=== PATIENT | female | born 1950 | race Caucasian/White ===

== ENCOUNTER → 2024-03-21 | Day surgery (SDC) | payer MEDICARE ==
[2024-03-16 09:40] LABS: BASOPHILS % 0.4 % (0.0-1.0); EOSINOPHILS # (AUTO) 0.1 (0.0-0.4); EOSINOPHILS % 1.2 % (0.0-6.0); HEMATOCRIT 42.7 % (34.2-44.1); HEMOGLOBIN 14.5 g/dL (12.0-16.0); LYMPHOCYTES # (AUTO) 3.5 (1.0-3.2); MEAN CORPUSCULAR VOLUME 97.3 fL (81-99); MONOCYTES # (AUTO) 0.8 (0.2-0.8); MONOCYTES % 7.9 % (4.4-11.3); NEUTROPHILS # (AUTO) 5.3 (2.1-6.9); NEUTROPHILS % 54.2 % (38.7-80.0); PLATELET COUNT 216 x10e3/uL (140-360); RED BLOOD COUNT 4.39 x10e6/uL (3.6-5.1); RED CELL DISTRIBUTION WIDTH 11.9 % (11.7-14.4); WHITE BLOOD COUNT 9.77 x10e3/uL (4.8-10.8)
[2024-03-16 10:25] LABS: ANION GAP 14.1 mmol/L (8-16); CALCIUM 9.9 mg/dL (8.4-10.2); CREATININE, SERUM 0.94 mg/dL (0.57-1.11); POTASSIUM 5.1 mmol/L (3.5-5.1)
[~2024-03-21] MED LIST: ACETAMINOPHEN 1000 MG/100 ML 100 ML IV ONE; ALENDRONATE SOD70 MG PO; BETAMETHASONE DISODIUM PHOS 6 MG/ML VIAL ONE; BONIVA2.5 MG; BUPIVACAINE HCL 0.5% INJ 30 ML VIAL INJ ONE; DEXAMETHASONE SOD PHOS INJ 4 MG/ML SDV ONE; EPHEDRINE SULFATE INJ 50 MG/ML VIAL ONE; FENTANYL CITRATE/PF 100MCG/2 ML INJ ONE; LEVOTHYROXINE PO; LIDOCAINE HCL 1% LOCAL INJ 20 ML VIAL ONE; LIDOCAINE HCL 2% LOCAL INJ 5 ML SDV VIAL INJ ONE; LISINOPRIL10 MG PO; MUPIROCIN 2% OINT 22 GM TUBE ONE; NEXIUM40 MG PO; ONDANSETRON HCL INJ 2MG/ML 2ML 2 MG/ML VIAL ONE; PROPOFOL IV EMULSION 10 MG/ML 20 ML VIAL ONE; SEVOFLURANE INHAL SOLN 250 ML PEN BTL ONE; Z PRILOSEC; Z.0.SIMVASTATIN40 MG PO; Z.0.VAGIFEM10 MCG
[2024-03-21] MEDS: CEFAZOLIN SODIUM 2 GM ONE (05:54)
[2024-03-21] MEDS: LACTATED RINGER'S 1,000 ML ONE (05:55)
[2024-03-21] MEDS: FENTANYL CITRATE/PF 100MCG/2 ML INJ ONE (08:45)
[2024-03-21] MEDS: HYDROCODONE/APAP 5MG-325MG TAB ONE (09:13)
[2024-03-21 09:48] VITALS: BP 142/76; PULSE 98; RESP 18; O2SAT 96
== END | disposition home or self-care (01) ==
LOC: OR 05:52
PROVIDERS: ATTEND Podiatrist Foot Surgery
DX: S93.321A Subluxation of tarsometatarsal joint of right foot, initial encounter (principal); Q66.211 Congenital metatarsus primus varus, right foot; M20.41 Other hammer toe(s) (acquired), right foot; M20.11 Hallux valgus (acquired), right foot; I10 Essential (primary) hypertension; E78.5 Hyperlipidemia, unspecified; E03.9 Hypothyroidism, unspecified; K21.9 Gastro-esophageal reflux disease without esophagitis; Z01.810 Encounter for preprocedural cardiovascular examination; Z01.812 Encounter for preprocedural laboratory examination; Z01.818 Encounter for other preprocedural examination; Z79.899 Other long term (current) drug therapy
CPT/HCPCS: 28285 ×2; 28297; 36415; 71046; 73620; 80048; 85025; 93005; C1713 ×2; C1776; J0131; J0720; J1100; J2001 ×2; J2405; J2704; J3010; J7121

== ENCOUNTER 2025-07-11 14:54 | Emergency (ER) | payer MEDICARE ==
[~2025-07-11] VITALS: Ht 157.5 cm; Wt 87.8 kg
[~2025-07-11 14:54] MED LIST changes: -ACETAMINOPHEN 1000 MG/100 ML 100 ML IV ONE; -BETAMETHASONE DISODIUM PHOS 6 MG/ML VIAL ONE; -BUPIVACAINE HCL 0.5% INJ 30 ML VIAL INJ ONE; -DEXAMETHASONE SOD PHOS INJ 4 MG/ML SDV ONE; -EPHEDRINE SULFATE INJ 50 MG/ML VIAL ONE; -FENTANYL CITRATE/PF 100MCG/2 ML INJ ONE; -LIDOCAINE HCL 1% LOCAL INJ 20 ML VIAL ONE; -LIDOCAINE HCL 2% LOCAL INJ 5 ML SDV VIAL INJ ONE; -MUPIROCIN 2% OINT 22 GM TUBE ONE; -ONDANSETRON HCL INJ 2MG/ML 2ML 2 MG/ML VIAL ONE; -PROPOFOL IV EMULSION 10 MG/ML 20 ML VIAL ONE; -SEVOFLURANE INHAL SOLN 250 ML PEN BTL ONE
[2025-07-11] MEDS ORDERED: CEFUROXIME500 MG PO (15:51)
[2025-07-11 16:03] VITALS: PULSE 92; RESP 16; TEMP 98.6; O2SAT 98
== END 2025-07-11 16:03 | disposition home or self-care (01) ==
LOC: FSED 15:15
DX: R30.0 Dysuria (principal); N39.0 Urinary tract infection, site not specified; R10.30 Lower abdominal pain, unspecified; Z85.72 Personal history of non-Hodgkin lymphomas; Z87.19 Personal history of other diseases of the digestive system
CPT/HCPCS: 81003; 87086; 99283